=== PATIENT | female | born 2000 | race Caucasian/White ===

== ENCOUNTER 2020-09-04 09:48 | Emergency (ER) | payer OTHER ==
[~2020-09-04] VITALS: Ht 165.1 cm; Wt 58.5 kg
[2020-09-04] MEDS ORDERED: NOVOLIN N100 UNIT/3 SUBQ (10:09)
[2020-09-04 10:14] LABS: ABSOLUTE NEUTROPHILS 2.4 thou/uL (1.4-8.2); BASOPHILS 0.9 % (0.0-2.0); EOSINOPHILS 1.3 % (0.0-3.0); HEMATOCRIT 43.1 % (37.0-47.0); HEMOGLOBIN 14.3 gm/dL (12.0-15.0); LYMPHOCYTES 55.8 % (24.0-44.0); MCH 30.8 pg (26.0-34.0); MCHC 33.1 g/dL (28.0-37.0); MCV 92.8 fL (80.0-100.0); MONOCYTES 6.2 % (1.0-8.0); PLATELET COUNT 475 thou/uL (150-400); POLYS 35.8 % (36.0-66.0); RBC 4.65 mil/uL (4.20-5.00); RDW 13.2 % (10.5-14.5); WBC 6.6 thou/uL (4.0-11.0)
[2020-09-04 10:31] LABS: CALCIUM 10.2 mg/dL (8.5-10.1); POTASSIUM 3.8 mmol/L (3.5-5.1)
[2020-09-04 10:33] LABS: BE(vivo) -9.4 mmol/L (-2 to +3); HCO3 16.4 mmol/L (22.0-26.0); PCO2 VENOUS 35.6 mmHg (41.0-51.0); PO2 VENOUS 29.5 mmHg (35.0-45.0)
[2020-09-04 10:37] LABS: ALBUMIN 4.1 g/dL (3.4-5.0); TOTAL BILIRUBIN 0.4 mg/dL (0.2-1.0); TOTAL PROTEIN 8.5 g/dL (6.4-8.2)
[2020-09-04] MEDS ORDERED: NOVOLOG FL100 UNIT/M SUBQ (11:07)
[2020-09-04] MEDS ORDERED: BASAGLAR K100 UNIT/1 SUBQ (11:08)
[2020-09-04] MEDS ORDERED: ZOFRAN 4 MG ORAL4 MG PO (12:54)
[2020-09-04 13:00] VITALS: BP 121/82
== END 2020-09-04 13:00 | disposition left against medical advice (07) ==
LOC: ER 09:48
PROVIDERS: Emergency Medicine
DX: E11.10 Type 2 diabetes mellitus with ketoacidosis without coma (principal); R11.2 Nausea with vomiting, unspecified; Z79.4 Long term (current) use of insulin

== ENCOUNTER 2021-03-19 18:41 | Emergency (ER) | payer OTHER ==
[~2021-03-19] VITALS: Ht 165.1 cm; Wt 66.2 kg
[~2021-03-19 18:41] MED LIST: BASAGLAR K100 UNIT/1 SUBQ; NOVOLIN N100 UNIT/3 SUBQ; NOVOLOG FL100 UNIT/M SUBQ; ZOFRAN 4 MG ORAL4 MG PO
[2021-03-19 19:45] LABS: HEMATOCRIT 35.3 % (37.0-47.0); HEMOGLOBIN 12.5 gm/dL (12.0-15.0); MCH 32.5 pg (26.0-34.0); MCHC 35.3 g/dL (28.0-37.0); RBC 3.83 mil/uL (4.20-5.00); RDW 12.8 % (10.5-14.5); WBC 8.2 thou/uL (4.0-11.0)
[2021-03-19 19:57] LABS: CALCIUM 8.3 mg/dL (8.5-10.1); CREATININE 0.7 mg/dL (0.6-1.0); POTASSIUM 4.1 mmol/L (3.5-5.1); TOTAL BILIRUBIN 0.3 mg/dL (0.2-1.0)
[2021-03-19 20:59] LABS: URINE BILIRUBIN NEGATIVE (Negative); URINE BLOOD NEGATIVE (Negative); URINE CLARITY CLEAR; URINE COLOR YELLOW; URINE GLUCOSE-RANDOM* 3+ (Negative); URINE KETONES 2+ (Negative); URINE LEUKOCYTES-REFLEX NEGATIVE (Negative); URINE NITRITE-REFLEX NEGATIVE (Negative); URINE PROTEIN (DIPSTICK) NEGATIVE (Negative); URINE SPECIFIC GRAVITY <= 1.005 (1.005-1.035); URINE UROBILINOGEN 0.2 E.U./dl (0.2-1.0)
[2021-03-19 21:38] VITALS: BP 124/79
== END 2021-03-19 21:39 | disposition home or self-care (01) ==
LOC: ER 18:41
PROVIDERS: Emergency Medicine
DX: E10.65 Type 1 diabetes mellitus with hyperglycemia (principal); F19.90 Other psychoactive substance use, unspecified, uncomplicated; Z79.84 Long term (current) use of oral hypoglycemic drugs; Z79.899 Other long term (current) drug therapy